=== PATIENT | female | born 1940 | race Caucasian/White ===

== ENCOUNTER 2018-11-26 22:30 | Inpatient (IN) | payer MEDICARE, BC ==
[~2018-11-26] VITALS: Ht 165.1 cm; Wt 86.4 kg
[2018-11-26 22:32] VITALS: BP 91/72
[2018-11-26 23:05] LABS: URINE BLOOD 2+ (Negative); URINE CLARITY CLEAR; URINE COLOR DARK YELLOW; URINE GLUCOSE-RANDOM NEGATIVE (Negative); URINE KETONES NEGATIVE (Negative); URINE LEUKOCYTES-REFLEX TRACE (Negative); URINE NITRITE-REFLEX NEGATIVE (Negative); URINE PROTEIN NEGATIVE (Negative); URINE SPECIFIC GRAVITY 1.025 (1.005-1.030)
[2018-11-26 23:08] LABS: ICTOTEST (BILI CONFIRMATORY) Positive (Negative); URINE BILIRUBIN 2+ (Negative)
[2018-11-26] MEDS ORDERED: NORCO 5-325 TA1 EACH PO (23:19)
[2018-11-26 23:28] LABS: ABSOLUTE BASOPHILS 0.1 thou/uL (0.0-0.2); ABSOLUTE LYMPHOCYTES 2.6 thou/uL (0.8-5.3); ABSOLUTE MONOCYTES 0.9 thou/uL (0.0-1.2); ABSOLUTE NEUTROPHILS 8.1 thou/uL (1.6-8.1); BASOPHILS 1.2 %; EOSINOPHILS 0.3 %; HEMATOCRIT 40.3 % (37.0-47.0); HEMOGLOBIN 13.2 gm/dL (12.0-15.0); LYMPHOCYTES 22.3 %; MCH 28.3 pg (26.0-34.0); MCHC 32.7 g/dL (28.0-37.0); MCV 86.8 fL (80.0-100.0); MONOCYTES 7.9 %; MPV 8.3 fl. (7.2-11.1); NUCLEATED RBCS 0 /100WBC; PLATELET COUNT* 76 thou/uL (150-400); POLYS 68.3 %; RBC 4.64 mil/uL (4.20-5.00); RDW-CV 22.2 % (10.5-14.5); WBC 11.8 thou/uL (4.0-11.0)
[2018-11-26 23:29] LABS: BE 0 mmol/L (-2 to +3); PCO2 28.7 mmHg (35.0-45.0); pH 7.503 (7.340-7.450)
[2018-11-26 23:42] LABS: ANION GAP 15 mmol/L (7-16); BUN 28 mg/dL (7-18); CALCIUM 10.8 mg/dL (8.5-10.1); CHLORIDE 93 mmol/L (98-107); CO2 23 mmol/L (21-32); CREATININE 1.6 mg/dL (0.6-1.3); GLUCOSE 77 mg/dL (70-99); POTASSIUM 3.2 mmol/L (3.5-5.1); SODIUM 131 mmol/L (136-145)
[2018-11-26 23:43] LABS: INR 1.8; PROTIME 18.7 Seconds (9.20-11.50)
[2018-11-26 23:58] LABS: ALKALINE PHOSPHATASE 765 U/L (46-116); NT-PRO BRAIN NAT PEPTIDE 3067 pg/mL (<300); SGOT 436 U/L (15-37); SGPT 77 U/L (30-65); TOTAL PROTEIN 5.5 g/dL (6.4-8.2); TROPONIN-I LEVEL <0.06 ng/mL (<0.06)
[2018-11-27] VITALS (53 sets, daily range): BP systolic 85–150; BP diastolic 35–131
[2018-11-27 00:05] LABS: HYALINE CASTS >10 Many /LPF (None Seen); SQUAMOUS 0-3 Few /LPF (0-3)
[2018-11-27 00:06] LABS: URINE RBC 3-10 Few /HPF (0-2); URINE WBC-REFLEX 6-15 Few /HPF (0-5)
[2018-11-27 00:07] LABS: CRYSTALS None Seen /LPF (None Seen)
[2018-11-27 02:51] LABS: ANISOCYTOSIS 2+; PLATELET ESTIMATE DECREASED; POLYCHROMASIA 1+; TARGET CELLS Occasional
[2018-11-27 04:37] LABS: BE -3.3 mmol/L (-2 to +3); PCO2 31.5 mmHg (35.0-45.0); PO2 79.4 mmHg (75.0-100.0); pH 7.422 (7.340-7.450)
--- NOTE | 2018-11-27 06:08 | NUR ---
PT ADMITTED TO ICU 5 FROM ER VIA STRETCHER. PT MOVED TO [facility] B[facility] PER STAFF. NO FAMILY PRESENT. PT CONFUSED AND UNABLE TO ANSWER QUESTIONS OR FOLLOW COMMANDS. MONITORS APPLIED AND ALARMS SET. PT HAS 2 OPEN AREAS ON SACRUM, WOUND CLEANSED AND REDRESSED AFTER PICTURE TAKEN AND PLACED ON CHART. UNALBE TO OBTAIN HISTORY PT IS UNABLE TO ANSWER QUESTIONS. PT IS THRASHING IN BED AT TIMES PAIN MEDICATION GIVEN ORDERED. BED ALARM ON SIDE RAILS UP. LEVOPHED GTT STARTED ORDERED. VSS AND NO ACUTE CHANGES DURING SHIFT WILL CONITNUE TO MONITOR
[2018-11-27 09:04] LABS: ABSOLUTE BASOPHILS 0.1 thou/uL (0.0-0.2); ABSOLUTE EOSINOPHILS 0.1 thou/uL (0.0-0.7); ABSOLUTE LYMPHOCYTES 3.1 thou/uL (0.8-5.3); ABSOLUTE NEUTROPHILS 8.2 thou/uL (1.6-8.1); BASOPHILS 0.7 %; EOSINOPHILS 0.7 %; HEMATOCRIT 41.4 % (37.0-47.0); HEMOGLOBIN 13.6 gm/dL (12.0-15.0); LYMPHOCYTES 25.1 %; MCH 28.7 pg (26.0-34.0); MCV 86.9 fL (80.0-100.0); MONOCYTES 7.9 %; NUCLEATED RBCS 1 /100WBC; POLYS 65.6 %; RBC 4.76 mil/uL (4.20-5.00); RDW-CV 22.5 % (10.5-14.5); WBC 12.4 thou/uL (4.0-11.0)
[2018-11-27 09:12] LABS: CALCIUM 10.1 mg/dL (8.5-10.1); CREATININE 1.3 mg/dL (0.6-1.3)
[2018-11-27 09:14] LABS: POTASSIUM 2.8 mmol/L (3.5-5.1)
[2018-11-27 09:36] LABS: PLATELET COUNT* 88 thou/uL (150-400)
--- NOTE | 2018-11-27 11:00 | NUR ---
PT NOT FOLLOWING COMMANDS. PT YELLING AT TIMES INCOMPREHENSIBLE WORDS. LEVOPHED TITRATED PER PROTOCOL. PT REPOSOTIONED.
[2018-11-27 11:18] LABS: ANISOCYTOSIS 1+; TARGET CELLS 1+; TEARDROPS 1+
--- NOTE | 2018-11-27 13:10 | EKG ---
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
--- NOTE | 2018-11-27 13:10 | EKG ---
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1940 Requested By: Queta Akhtar Order Number: [id number] MD: Bebo Oliveira Measurements Intervals [place] Rate: 94 P: 7 IN: 198 QRS: 34 QRSD: 131 T: -22 QT: 351 QTc: 439 Interpretive Statements Sinus rhythm Probable left atrial enlargement Abnormal T, consider ischemia, diffuse leads artifact noted No previous ECG available for comparison Electronically Signed On 11-27-2018 13:10:26 BLOCKING MACHINE OPERATOR SECOND by Bebo Oliveira [email or web address] <ELECTRONICALLY SIGNED> By: Bebo Oliveira MD, [facility] 11/27/18 1310 [id number] Bebo Oliveira MD, [facility] /EPI
--- NOTE | 2018-11-27 14:58 | NUR ---
SPOKE BRIEFLY WITH AT BEDSIDE. PT ADMITTED EARLIER THIS MORNING WITH RIGO, SHE HAS METASTATIC BREAST CANCER. SAID SHE WAS AT [facility] IN OCTOBER, SHE WAS DISCHARGED TO [facility] FOR SNF. HE BROUGHT HER HOME YESTERDAY, HE SAID SHE 'GOT WORSE INSTEAD OF BETTER AT THE REHAB PLACE.' WAITING TO TALK WITH PHYSICIAN. HE SAID IF PT IS 'GOING TO GET BETTER THAN I WANT EVERYTHING DONE, BUT IF SHE IS JUST GOING TO CONTINUE TO GET WORSE THERE IS NO POINT IN CONTINUING ALL THIS. NO USE IN PROLONGING THINGS IF SHE ISN'T GOING TO GET BETTER.' MESSAGE LEFT WITH [facility] TO GET ADDITIONAL INFORMATION.
--- NOTE | 2018-11-27 16:47 | NUR ---
PT'S CAME IN EXPRESSED CONCERN ABOUT . SPOKE TO DR TAYLOR OVER THE PHONE. STATED, "I DO NOT WANT HER TO SUFFER". PT ANXIOUS, PULLING AT BED SHEETS, TAKING OFF GOWN. DR TAYLOR NOTIFIED AND RECEIVED PRN ORDER FOR ATIVAN. ATIVAN ADMINISTERED PER EMAR ONE TIME. PT CALM THIS AFTERNOON. LEVOPHED STOPPED FOR 15-30 MINUTES. PT BECAME HYPOTENSIVE AND LEVOPHED RE-STARTED.
--- NOTE | 2018-11-27 18:15 | NUR ---
POTASSIUM REPLACED PER PROTOCOL.
--- NOTE | 2018-11-27 18:24 | NUR ---
WOUND CARE NOTE: CONSULT RECEIVED FOR SACRAL BREAKDOWN ON ADMISSION. PATIENT PRESENTS WITH A HEALING STAGE 3 PRESSURE ULCER TO HER COCCYX. WOUND MEASURES 1.2X1X0.3. MOIST, RED GRANULAR WOUND BED. CLEMENT-WOUND INFLAMMED WITH SEVERAL SMALL PINPOINT OPENINGS. POSSIBLE FUNGAL RELATION? CLEANSED WOUND WITH WOUND CLEANSER, PATTED DRY. APPLIED AQUACEL AG TO WOUND AND COVERED WITH BORDERED FOAM. RECOMMEND TURN Q2 HOURS, YEHX-BQ-TINR CONTINUE WITH LYNN MATTRESS LIMIT HOB <30 DEGREES LIMIT LAYERS OF LINEN UNDER PATIENT
--- NOTE | 2018-11-27 18:50 | NUR ---
ATTENTION CASE MANAGEMENT: DTChrsi DAWN WOULD LIKE TO BE INVOLVED IN PT'S CARE AND DISCHARGE.
[2018-11-28] VITALS (61 sets, daily range): BP systolic 77–137; BP diastolic 36–82
[2018-11-28 04:06] LABS: HEMATOCRIT 37.8 % (37.0-47.0); HEMOGLOBIN 12.6 gm/dL (12.0-15.0); MCH 28.6 pg (26.0-34.0); MCHC 33.4 g/dL (28.0-37.0); MCV 85.6 fL (80.0-100.0); MPV 8.5 fl. (7.2-11.1); RBC 4.42 mil/uL (4.20-5.00); RDW-CV 23.6 % (10.5-14.5); WBC 10.3 thou/uL (4.0-11.0)
[2018-11-28 04:19] LABS: ALBUMIN 1.6 g/dL (3.4-5.0); CALCIUM 9.4 mg/dL (8.5-10.1); CREATININE 1.2 mg/dL (0.6-1.3); MAGNESIUM 1.7 mg/dL (1.8-2.4); POTASSIUM 3.7 mmol/L (3.5-5.1); TOTAL BILIRUBIN 5.5 mg/dL (<0.1-1.0); TOTAL PROTEIN 4.7 g/dL (6.4-8.2)
--- NOTE | 2018-11-28 05:29 | NUR ---
PT. NOT PROGRESSING TOWARDS GOALS. REMAINS ON 1MCG LEVOPHED. ROOM AIR. MOANING/GRIMACING THROUGHOUT SHIFT, ATIVAN/FENTANYL GIVEN PER PRN ORDERS. BOTH MEDICATIONS HELP PT. REST. TURNED Q2H TO MAINTAIN SKIN INTEGRITY. IVF REMAIN INFUSING. PT. IS UNABLE TO EFFECTIVELY COMMUNICATE VERBALLY, INCOMPREHENSIBLE SOUNDS. WILL CONTINUE TO MONITOR.
--- NOTE | 2018-11-28 10:00 | NUR ---
LEVOPHED TITRATED PER PROTOCOL. PT MAKING INCOMPREHENSIBLE SOUNDS. PT REPOSITIONED.
[2018-11-28 10:36] LABS: POTASSIUM 3.5 mmol/L (3.5-5.1)
--- NOTE | 2018-11-28 13:00 | NUR ---
THIS AFTERNOON WHEN ASKED TO OPEN EYES, PT OPENED EYES. WHEN ASKED TO WIGGLE TOES, PT WIGGLES TOES. PT DID NOT FOLLOW OTHER COMMANDS.
--- NOTE | 2018-11-28 17:55 | NUR ---
PT ENCOURAGED TO SPEAK. YES/NO/SIMPLE QUESTIONS ARE ASKED TO PATIENT. ONE TIME THIS SHIFT WHEN PT ASKED IF IN PAIN, PT STATED NO. PT CONTINUED TO GRIMACE AND MOAN ESPECIALLY UPON MOVEMENT/ REPOSITIONING. PAIN MEDICATION ADMININSTERED IV PER EMAR. DTR AMAIRANI REPORTED THAT 2-3 DAYS AGO PATIENT WAS NOT EDEMATOUS. THIS RN HAS HAD PT TODAY 11/28/18 AND 11/27/18. REPORTED TO DR THAT THIS RN HAS NOT NOTED A CHANGE IN EDMEA, HOWEVER FINDINGS FROM DTR THAT EDEMA HAS INCREASED REPORTED. FLUIDS DECREASED TO 40ML/HOUR. SPOUSE EXPRESSED CONCERN ABOUT NUTRITION. PER SPOUSES CONVERSATION WITH DR TAYLOR, WILL ASSESS NUTRITION STATUS TOMORROW. DTR'S AMAIRANI AND UCHE, AND SPOUSE ARE IN PT'S ROOM AT THIS TIME. LEVOPHED TITRATED. PT CONTINUES TO REQUIRE LEVOPHED GTT. POTASSIUM 3.5 AND REPLACED PER PROTOCL.
[2018-11-29] VITALS (36 sets, daily range): BP systolic 80–134; BP diastolic 47–83
--- NOTE | 2018-11-29 07:02 | NUR ---
Pt moaning/restless at times. Medicated with fentanyl and lorazepam every 2-3 hours; appears restful after receiving doses. Turned q2h. Unable to wean Levophed off, remains on 1 mcg. Pt not able to communicate clearly or purposefully. Will continue to monitor.
[2018-11-29 09:01] LABS: ABSOLUTE LYMPHOCYTES 1.8 thou/uL (0.8-5.3); ABSOLUTE MONOCYTES 0.6 thou/uL (0.0-1.2); ABSOLUTE NEUTROPHILS 7.2 thou/uL (1.6-8.1); BASOPHILS 0.2 %; EOSINOPHILS 0.2 %; HEMATOCRIT 40.6 % (37.0-47.0); HEMOGLOBIN 13.5 gm/dL (12.0-15.0); LYMPHOCYTES 18.7 %; MCH 28.6 pg (26.0-34.0); MCHC 33.3 g/dL (28.0-37.0); MONOCYTES 6.3 %; MPV 8.6 fl. (7.2-11.1); NUCLEATED RBCS 1 /100WBC; POLYS 74.6 %; RBC 4.73 mil/uL (4.20-5.00); RDW-CV 24.2 % (10.5-14.5); WBC 9.7 thou/uL (4.0-11.0)
[2018-11-29 09:16] LABS: CALCIUM 9.7 mg/dL (8.5-10.1); POTASSIUM 3.8 mmol/L (3.5-5.1)
[2018-11-29 09:49] LABS: PLATELET COUNT* 53 thou/uL (150-400); PLATELET ESTIMATE DECREASED
[2018-11-29 09:50] LABS: ANISOCYTOSIS 1+; POIKILOCYTOSIS 1+
--- NOTE | 2018-11-29 10:15 | NUR ---
PT DISCHARGED FROM P.T. SERVICES PER RN REQUEST. PATIENT NOT APPROPRIATE FOR THERAPY SERVICES DUE TO POOR MEDICAL STATUS. WILL BE ON HOSPICE SERVICES AT SOME POINT. SHALONDA RUIZ, MPT
--- NOTE | 2018-11-29 10:24 | NUR ---
PT NOT APPROPRIATE FOR SPEECH THERAPY AT THIS TIME. PLEASE RECONSULT IF NEEDED. THANK YOU. PT NOT ALERT AND COGNIZANT ENOUGH FOR EVALUATIONS.
--- NOTE | 2018-11-29 23:27 | NUR ---
HR SUSTAINING 120-130'S, RR 30'S. PT MOANING DESPITE FENTANYL DOSE 1HR AGO. CALL PLACED TO DR WASHINGTON, ORDER RECEIVED TO INCREASE ATIVAN TO 1MG Q2HR, GIVEN ORDERED.
[2018-11-30] VITALS (39 sets, daily range): BP systolic 58–154; BP diastolic 28–84
[2018-11-30 03:47] LABS: HEMATOCRIT 40.4 % (37.0-47.0); HEMOGLOBIN 13.4 gm/dL (12.0-15.0); MCH 28.6 pg (26.0-34.0); MCHC 33.1 g/dL (28.0-37.0); MCV 86.5 fL (80.0-100.0); MPV 8.5 fl. (7.2-11.1); RBC 4.67 mil/uL (4.20-5.00); WBC 10.3 thou/uL (4.0-11.0)
[2018-11-30 03:50] LABS: CALCIUM 9.3 mg/dL (8.5-10.1); CREATININE 1.1 mg/dL (0.6-1.3); POTASSIUM 3.7 mmol/L (3.5-5.1)
--- NOTE | 2018-11-30 06:20 | NUR ---
PT REMAINS MINIMALLY RESPONSIVE, OCCASIONAL INCOMPREHENSIBLE SPEECH. APPARENT PAIN EVIDENCED BY GRIMACE AND MOANING, TREATED WITH PRN FENTANYL ORDERED. ALSO GIVEN PRN ATIVAN ORDERED WITH RESTFUL PERIODS NOTED THEREAFTER. PT HAS BEEN TURNED Q2HR THROUGHOUT THE NIGHT.
--- NOTE | 2018-11-30 16:33 | NUR ---
PT ON COMFORT CARE. MEDICATIONS INCLUDING LEVOPHED DISCONTINUED. FENTANYL AND LORAZEPAM FOR PT COMFORT. FAMILY AT BEDSIDE.
--- NOTE | 2018-11-30 17:40 | NUR ---
PT TO TRANSFER TO ROOM 101. REPORT GIVEN TO NABEEL LIMA. PT FAMILY AWARE OF ROOM CHANGE AND AGREEABLE. FAMILY TOOK ALL PT BELONGINGS.
--- NOTE | 2018-11-30 18:26 | NUR ---
PT TRANSFERRED TO UNIT ON COMFORT CARE. IV PAIN MEDS GIVEN ORDERED. NEW ORDERS FOR PAIN MEDS GIVEN. COMFORT CARE TRAY ORDERED FOR FAMILY. PT IS NONRESPONSIVE AND MOANS IN PAIN. RESPIRATORY RATE IS 42, O2 VIA MASK WITH 6 LITERS OF O2. FAMILY AT BEDSIDE. WISHES TO STAY THE NIGHT. WILL CONTINUE TO MONITOR.
--- NOTE | 2018-11-30 20:10 | NUR ---
ASSUMED PATIENT CARE AT 1930. MET WITH AND TWO DAUGHTERS. DISCUSSED PLAN OF CARE. PAIN MEDICATION AND ATIVAN PROVIDED FOR MORITA AND AIR KHOI. DOES NOT WANT PATENT TURNED AT PRESENT. PILLOW COVERS FOR ARM SUPPORTS CHANGED. (EDEMATOUS WEEPING) REQUESTED VITAL SIGNS BE TAKEN: 58/28 WITH HR 76/MIN AND RESP 36/MIN. AFEBRILE. 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 COT AT BEDSIDE. SPOUSE WILL SPEND THE NIGHT. TWO DAUGHTERS; ARIAN, WILL LEAVE AND RETURN IN THE MORNING. 30 MIN TO HOURLY ROUNDS PLANNED. CONTINUE TO MONITOR FOR PATIENT AND FAMILY NEEDS.
--- NOTE | 2018-12-01 04:39 | NUR ---
PATIENT REMAINS WITH EYES CLOSED, NON-RESPONSIVE TO STIMULATION EXCEPT GRIMACE WITH MOVEMENT. MEDICATED X 2 THIS SHIFT PAIN/AIR HUNGAR EVIDENCED BY MOAN WITHOUT STIMULATION. LENI REMAINS AT BEDSIDE AND HAS REQUESTED THAT PATIENT NOT BE TURNED. VENT-MASK AT 50% PRESENT. CONTINUE TO MONITOR AND SUPPORT.
--- NOTE | 2018-12-01 17:44 | NUR ---
PT IS NON RESPONSIVE. FAMILY AT BEDSIDE. PAIN MEDS GIVEN WITH CONSENT OF FAMILY. NASAL CANNULA ADDED INSTEAD OF FACE MASK. O2 DECREASED TO 5 LITERS. FALL RISK PRECAUTIONS IN PLACE. HOURLY ROUNDING COMPLETED. WILL CONTINUE TO MONITOR.
[2018-12-01 19:20] VITALS: BP 74/34
--- NOTE | 2018-12-02 05:31 | NUR ---
REPORT RECEIVED FROM OFF GOING SHIFT AND CARE ASSUMMED. SPOUSE AT BEDSIDE. PT UNRESPONISVE AND REMAINS ON COMFORT CARE. HAS REFUSED TO ALLOW US TO GIVE PAIN MEDICATIONS TO PATIENT. RESP REG AND LABORED AND IRREGULAR. SKIN W/D. SPOUSE DOES NOT WANT PATIENT TO BE TURNED, WISHES HONORED. O2 5 L BNC INTACT. WILL CONTINUE TO MONITOR
--- NOTE | 2018-12-02 11:48 | NUR ---
Nutrition: Pt on Comfort Care. Defer further nutrition unless consulted.
--- NOTE | 2018-12-02 15:26 | NUR ---
DISCUSSED COMFORT CARE TODAY AND TOMORROW [facility] WITH WANG/PAINTER FOREMAN. WILL SEE PT.IN AM.
--- NOTE | 2018-12-02 17:33 | NUR ---
PT NONRESPONSIVE. RESPIRATIONS SHALLOW AND SPREAD OUT. PAIN MEDS GIVEN WITH CONSENT OF FAMILY. NO Q2 TURNS. HOURLY ROUNDING COMPLETED. WILL CONTINUE TO MONITOR.
--- NOTE | 2018-12-02 18:55 | NUR ---
1820 no blood pressure. no pulse felt. no respirations noted. no heart beat or breath sounds heard. 2 rn's pronounced time of . family at bedside. home called.
--- NOTE | 2018-12-02 20:18 | NUR ---
PT WAS PICKED UP FROM THE HOME AT 2006. PAPERS SIGNED BY THE SECURITY AND HOME PERSON.
== END 2018-12-02 20:07 | DRG 871 ==
LOC: M.ERS 22:30 → M.ICU 11-27 01:45 → M.TBA-ER 11-27 01:45 → M.ICU 11-27 04:30 → M.ORTHSURG 11-30 17:59
PROVIDERS: Emergency Medicine; Internal Medicine; ADMIT Internal Medicine
PROC: B548ZZA Ultrasonography of Superior Vena Cava, Guidance (ICD-10-PCS; principal; 2018-11-27)
PROC: 02HV33Z Insertion of Infusion Device into Superior Vena Cava, Percutaneous Approach (ICD-10-PCS; principal; 2018-11-27)
DX: A41.9 Sepsis, unspecified organism (principal); G92 Toxic encephalopathy; J18.9 Pneumonia, unspecified organism; N39.0 Urinary tract infection, site not specified; N17.9 Acute kidney failure, unspecified; E44.0 Moderate protein-calorie malnutrition; C78.7 Secondary malignant neoplasm of liver and intrahepatic bile duct; C79.51 Secondary malignant neoplasm of bone; E87.6 Hypokalemia; I95.9 Hypotension, unspecified; E16.2 Hypoglycemia, unspecified; C50.919 Malignant neoplasm of unspecified site of unspecified female breast; Z66 Do not resuscitate; Z51.5 Encounter for palliative care; Z87.891 Personal history of nicotine dependence; Z88.0 Allergy status to penicillin; Z68.31 Body mass index [BMI] 31.0-31.9, adult; Z79.899 Other long term (current) drug therapy